=== PATIENT | female | born 1945 | race Caucasian/White ===

== ENCOUNTER 2023-09-28 10:50 | Outpatient (CLI) | payer MEDICARE, OTHER ==
--- NOTE | 2023-09-28 11:58 | XRAY Report ---
PROCEDURE: Shoulder 2+V RT INDICATIONS: SPRAIN OF RIGHT SHOULDER TECHNIQUE: 3 views of the shoulder were acquired. COMPARISON: None. FINDINGS: Bones: No fractures or dislocations. Degenerative changes including small spurs and hypertrophic oss ification at the acromioclavicular joint. No suspicious bony lesions. Visualized ribs appear intact. Soft tissues: No suspicious soft tissue calcifications. The visualized lungs are within normal limi ts. IMPRESSION: No acute fractures or subluxation. Right AC joint degenerative change. Reviewed by: Sheeba Navarro MD on 09/28/2023 11:56 AM [facility] Approved by: Sheeba Navarro MD on 09/28/2023 11:56 AM [facility] Station ID: [id number]
== END 2023-09-28 23:59 | disposition home or self-care (01) ==
LOC: DI.S 10:50
PROVIDERS: ATTEND Registered Nurse
DX: S43.491A Other sprain of right shoulder joint, initial encounter (principal); M19.011 Primary osteoarthritis, right shoulder